=== PATIENT | female | born 1990 | race Caucasian/White ===

== ENCOUNTER 2017-02-04 16:51 | Emergency (ER) | payer OTHER ==
[~2017-02-04] VITALS: Ht 170.2 cm; Wt 106.6 kg
[~2017-02-04 16:51] MED LIST: ZOV800 PO
[2017-02-04 17:03] VITALS: BP 115/79; PULSE 87; RESP 16; O2SAT 98
--- NOTE | 2017-02-04 18:23 | ED.REPORT ---
HPI- Female Date of Service Feb 04, 2017 ED Provider: Eric Arora MD Pt is a 26 year old female with a history of ectopic (x2), dermoid cyst, cholecystectomy, and anemia who presents to the ED complaining of right sided cramping pelvic pain onset for the past 6 months since she had her tubal ligation. Pt c/o associated lightheadedness, nausea, and vaginal discharge with odor. The pain is radiating to her lower back. She has not taken medication to alleviate her symptoms today. Nursing Notes Stated Complaint: PELVIC CRAMPING Chief Complaint: Female Abdominal Pain Nursing Notes Reviewed: Yes ([place] not reconciled) Allergies: Coded Allergies: No Known Allergies (Verified Allergy, Unknown, 02/04/17) Scheduled Acyclovir (Acyclovir) 800 Mg Tab 800 MG PO 5XD Metronidazole (Metronidazole) 500 Mg Tablet 500 MG PO BID Scheduled PRN Ondansetron ODT (Ondansetron ODT) 8 Mg Tab.rapdis 8 MG PO Q4H PRN PRN For Nausea General Time Seen by MD: 18:20 Chief Complaint Pelvic pain Hx Obtained From: Patient Arrived By: Walk-in Sudden in Onset?: No Onset Occurred: More than a week ago... 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 Respiratory: Denies: Non-productive cough, Shortness of breath Physical Exam Initial Vital Signs Vital Signs (First) Date Time Temp Pulse Resp B/P Pulse Ox O2 Delivery O2 Flow Rate FiO2 02/04/17 17:03 36.4 87 16 115/79 98 Room Air Initial VS: Reviewed, Vital signs normal Head / Eyes: Atraumatic, Normocephalic, PERRL ENT: Mucous membranes moist, Conjunctiva normal, No scleral icterus Neck: Supple, Full range of motion Respiratory: Breath sounds normal, Clear to auscultation, No respiratory distress Cardiovascular: Regular rate & rhythm, Heart sounds normal, Intact distal pulses Extremities: Vascular intact, Neuro intact Skin: Warm, Dry, No cyanosis Neurologic: Alert, Oriented, Nonfocal Psychiatric: Mood/affect normal, Behavior normal Female Genitourinary: Atraumatic Scant discharge otherwise normal. General/Constitutional: Awake, Alert, Cooperative, Not toxic appearing Abdomen: Atraumatic, Soft, No guarding, No rebound Trace tenderness in RLQ Interpretation & Diagnostics US PELVIC SONOGRAM AND TRANSVAGINAL SONOGRAM: IMPRESSION: Unchanged appearance of left adnexal dermoid. Dictated by: Nubia Pulido M.D. on 02/04/2017 at 20:39 Lab Results Interpretation Result Diagram: 02/04/17 1813 02/04/17 1813 Test 02/04/17 17:26 02/04/17 18:13 02/04/17 18:21 Hold Urine Received (Received) White Blood Count 8.2th/mm3 (3.8-10.1) Red Blood Count 4.53mil/mm3 (3.90-5.20) Hemoglobin 13.0g/dL (12.0-15.6) Hematocrit 38.0% (35.0-46.0) Mean Corpuscular Volume 83.9fL (81-100) Mean Corpuscular Hemoglobin 28.7pg (27.0-35.0) Mean Corpuscular Hemoglobin Concent 34.2% (32.0-37.0) Red Cell Distribution Width 13.0% (12.3-15.4) Platelet Count 275bil/L (150-400) Neutrophils (%) (Auto) 57.6% (40-74) Lymphocytes (%) (Auto) 34.6% (14-46) Monocytes (%) (Auto) 5.5% (4-12) Eosinophils (%) (Auto) 2.0% (0-5) Basophils (%) (Auto) 0.2% (0-3) Sodium Level 140mEq/L (134-144) Potassium Level 4.1mEq/L (3.5-5.2) Chloride Level 105mEq/L (97-108) Carbon Dioxide Level 22mmol/L (18-29) Blood Urea Nitrogen 13mg/dL (6-20) Creatinine 0.68mg/dL (0.57-1.00) Estimat Glomerular Filtration Rate 149mL/min (>59) Glucose Level 96mg/dL (60-99) Calcium Level 9.0mg/dL (8.5-10.1) Magnesium Level 2.0mg/dL (1.6-2.6) Total Bilirubin 0.2mg/dL (0.0-1.2) Aspartate Amino Transf (AST/SGOT) 10U/L (0-50) Alanine Aminotransferase (ALT/SGPT) 11U/L (0-32) Alkaline Phosphatase 87U/L (25-150) Total Protein 7.0g/dL (6.4-8.4) Albumin 4.1g/dL (3.4-5.0) Lipase 29U/L (13-60) Re-Eval/Medical Decision Med Decision/Clinical Course This is a pleasant 26-year-old female presents with 6 months of some pelvic pain and cramping, as well as a new malodorous discharge with concern for BV. She denies fever, nausea, vomiting. She became increasingly concerned however as she was diagnosed a while ago with a dermoid cyst and advised to get follow- up for this, but she just delivered and have the new child and lost track of time and did not follow-up. Additionally, and similarly, she was told she had an abnormal Pap smear need a colposcopy-she had an ectopic and followed up to complete evaluation, so she become increasingly concerned. He did not try to establish a PCP, but says that taken an appointment for her month -ultimately came into the emergency department. She denies history STDs. She has no additional complaints. On exam she is in no acute distress. She take ibuprofen for pain with improvement. Abdomen soft nontender without guarding or rebound. Pelvic exam reveals a trace discharge, with possible clue cells on wet mount. GC is pending. Ultrasound reveals an unchanged left dermoid cyst, but no other pathology. Patient is reassured. She has been started on metronidazole for the bacterial vaginosis. Routine precautions reviewed. She is advised to go ahead and follow up with [facility] referral to the women's clinic is provided. The patient is discharged in stable condition. Routine precautions reviewed. Source of Hx: Old records Re-Evaluation/Progress #1: Time of Eval: 19:19 Re-Evaluation/Progress Note: Pt rechecked. Performed pelvic physical exam with pt's consent. All questions were answered. Re-Evaluation/Progress #2: Time of Eval: 20:33 Re-Evaluation/Progress Note: Pt rechecked. Informed pt of plan for discharge. Pt understands and agrees with plan for discharge. F/U instructions and RTER warnings given. All questions addressed. Differential Diagnosis: Negative: , complete, , incomplete, , inevitable, , missed, , threatened, Active labor, premature, Active labor, term, Ectopic preg, ruptured, Ectopic , Pelvic inflam disease, Pyelonephritis, acute, Tubo-ovarian abscess, Urinary retention, Urinary tract infection Counseled Regarding: Diagnosis, Lab results, Need for follow-up, When/why to return to ED Discharge & Departure Impression: Primary Impression: Pelvic pain Additional Impressions: Bacterial vaginosis Dermoid cyst of left ovary Disposition: Home Discharge Condition All VS Reviewed: Yes Condition: Stable Additional Instructions: 1. There has been no worsening of the dermoid cyst on the ovary. 2. Keep the plan to follow up with the [facility] (Call for an appointment with [facility]) 3. You do have bacterial vaginosis. Take metronidazole 500mg twice a day for seven days. 4. Continue ibuprofen 400-800mg up to three times a day as needed for soreness. 5. If needed for nausea take ondansetron 8mg (let dissolve under tongue) up to every 4 hours as needed. 6. Return if needed for new or worsening symptoms. Referrals: [facility] (PCP) [facility] [place] Portions of this note were transcribed by Maryjane Green. I, Dr. Arora personally performed the history, physical exam and medical decision-making; I reviewed and confirmed the accuracy of the information in the transcribed note. Signed by: Nicole Scanlon, 02/04/17 and 19:30. copies to: [facility] Eric Arora MD Feb 04, 2017 18:23 Maryjane Rea Feb 04, 2017 18:34
[2017-02-04 18:34] LABS: BASOPHILS % (AUTO) 0.2 % (0-3); MONOCYTES % (AUTO) 5.5 % (4-12); Mean Corpuscular Hemoglobin 28.7 pg (27.0-35.0); Mean Corpuscular Volume 83.9 fL (81-100); NEUTROPHILS % (AUTO) 57.6 % (40-74); Platelet Count 275 bil/L (150-400)
[2017-02-04] MEDS ORDERED: Ondansetron 8 mg ODT Tablet PO ONE (18:35)
[2017-02-04 20:16] VITALS: BP 110/74; PULSE 64; O2SAT 97
[2017-02-04] MEDS ORDERED: ONDA8TAB10 PO (20:30)
[2017-02-04] MEDS ORDERED: METR500T19 PO (20:30)
--- NOTE | 2017-02-04 20:42 | DRSVH ---
PROCEDURE: US PELVIC SONOGRAM + TRANSVAGINAL SONOGRAM INDICATIONS: pelvic pain, h/o dermoid cyst(s)? TECHNIQUE: Real-time scanning was performed of the pelvic organs, with image documentation. Additional endovagi nal scanning was necessary due to incomplete visualization of the adnexal and endometrial structures by transabdominal scanning. COMPARISON: None. FINDINGS: Transabdominal scanning: Limited scanning through the kidneys shows no hydronephrosis. No pathologi c free abdominal or pelvic fluid. Endovaginal scanning: Uterus: Uterus is normal in size at 8.0 x 3.7 x 4.4 cm. The endometrium measures 4.6 mm in combined thickness. Ovaries: Right ovary measures 27 x 20 x 25 mm. Left artery measures 35 x 21 x 22 mm. Several prominen t follicles are noted bilaterally. Normal blood flow is noted bilaterally. Within the left adnexa the re is a focus of increased echogenicity measuring 46 x 33 x 47 mm, unchanged compared to prior exam. IMPRESSION: Unchanged appearance of left adnexal dermoid. Dictated by: Nubia Pulido M.D. on 02/04/2017 at 20:39 Approved by: Nubia Pulido M.D. on 02/04/2017 at 20:40
[2017-02-04 20:43] VITALS: BP 110/74; PULSE 64; RESP 16; O2SAT 97
== END 2017-02-04 20:47 | disposition home or self-care (01) ==
LOC: SED 16:51
DX: R10.2 Pelvic and perineal pain (principal); N76.0 Acute vaginitis; D27.1 Benign neoplasm of left ovary